=== PATIENT | male | born 1990 | race African-American/Black ===

== ENCOUNTER → 2020-01-18 | Outpatient (CLI) | payer OTHER | LOC: LAB 10:09 | PROVIDERS: ATTEND Anesthesiology | DX: Z01.812 Encounter for preprocedural laboratory examination (principal); Z20.828 Contact with and (suspected) exposure to other viral communicable diseases ==

== ENCOUNTER → 2020-01-28 | Outpatient (CLI) | payer BC, OTHER | LOC: LAB 10:56 | PROVIDERS: ATTEND Anesthesiology | DX: Z01.812 Encounter for preprocedural laboratory examination (principal); Z20.828 Contact with and (suspected) exposure to other viral communicable diseases ==